=== PATIENT | male | born 1995 | race Caucasian/White ===

== ENCOUNTER 2016-11-16 09:51 | Outpatient (CLI) | payer OTHER | END 2016-11-16 09:52 | LOC: OUT 09:51 | PROVIDERS: ATTEND Colon & Rectal Surgery | DX: L05.91 Pilonidal cyst without abscess (principal) | CPT/HCPCS: 99213 ==

== ENCOUNTER 2017-03-01 07:18 | Day surgery (SDC) | payer OTHER ==
--- NOTE | 2017-03-01 08:18 | History and Physical Report ---
CHIEF COMPLAINT: Pilonidal disease. HISTORY OF PRESENT ILLNESS: This is a 21-year-old man with intermittent pain and drainage from pilonidal disease for many years. He has not required an I & D; however, he continues to have significant irritation from this and now presents for excision. PAST MEDICAL HISTORY: None. PAST SURGICAL HISTORY: None. MEDICATIONS: None. ALLERGIES: No known drug allergies. SOCIAL HISTORY: No drug use. No significant tobacco or alcohol use. REVIEW OF SYSTEMS: He has no evidence of chest pain, shortness of breath, or complaints. No weight loss. No chills. No fever. No fatigue. No skin problems other than the pilonidal. No abdominal pain or bloating. No blood in the stool. No blood in the urine. He has no back pain. No joint pain. No problems with easy bruising or bleeding. PHYSICAL EXAMINATION: General: On exam, he is well-developed, well-nourished, and in no acute distress. HEENT: No masses. Neck: Trachea is midline and atraumatic. Chest: Clear bilaterally. Heart: Regular rate and rhythm. Abdomen: Soft, nontender, and nondistended with no masses and no hepatosplenomegaly. Skin: He has a 4 cm area of pilonidal disease with no active infection. Neurologic: He is alert and oriented with no focal deficits. Extremities: No deformities and no edema. IMPRESSION: Pilonidal disease. PLAN: Excision. Risks were discussed including bleeding, infection, recurrence, and prolonged healing of the wound. BUSHRA
--- NOTE | 2017-03-01 14:52 | Operative Note ---
SURGEON: Miguel A Crespo MD ANESTHESIA: General with local. ESTIMATED BLOOD LOSS: Minimal. COMPLICATIONS: None. APPARENT FINDINGS: A 4 cm area of pilonidal disease. INDICATIONS FOR PROCEDURE: This is a 22-year-old man who has a long history of recurrent pilonidal disease who presents for excision. PREOPERATIVE DIAGNOSIS: Pilonidal disease. POSTOPERATIVE DIAGNOSIS: Pilonidal disease. PROCEDURE PERFORMED: Excision of pilonidal disease. DESCRIPTION OF PROCEDURE: The patient was brought to the operating room. General anesthesia was achieved. He was placed in the right lateral decubitus position. The gluteal cleft was shaved, prepped, and draped. He had about a 4 cm area of pilonidal disease. There was purulent drainage. The entire tract was open. There was granulation of tissue and hair. This was all excised and curetted. The wound measured about 4 x 2 cm. The base was clean. The wound was packed with iodoform gauze and local anesthesia with 0.25% Marcaine with epinephrine was injected in the incision. A dressing was placed. The patient was placed supine , awakened and extubated in the operating room and taken to the recovery room in good condition. BUSHRA
== END 2017-03-01 07:20 ==
LOC: OPSURG 07:18
PROVIDERS: ATTEND Colon & Rectal Surgery
DX: L05.91 Pilonidal cyst without abscess (principal)
CPT/HCPCS: 11771; J1100; J1885; J2001; J2250; J2405; J2704; J3010; J7120; J7030; S1016

== ENCOUNTER 2017-03-15 11:32 | Outpatient (CLI) | payer OTHER, BC | END 2017-03-15 11:33 | LOC: OUT 11:32 | PROVIDERS: ATTEND Colon & Rectal Surgery | DX: Z98.890 Other specified postprocedural states (principal) | CPT/HCPCS: 99213 ==

== ENCOUNTER 2017-03-29 | Outpatient (CLI) | payer OTHER, BC | END 2017-03-29 10:20 | DX: Z98.890 Other specified postprocedural states (principal) | CPT/HCPCS: 99213 ==